=== PATIENT | female | born 1970 | race Two or more races ===

== ENCOUNTER 2023-05-02 03:40 | Emergency (ER) | payer BC, OTHER ==
[~2023-05-02] VITALS: Ht 175.3 cm; Wt 60.2 kg
[2023-05-02 03:51] VITALS: BP 100/73; PULSE 102; RESP 20; TEMP 98.5; O2SAT 96
[2023-05-02 04:43] LABS: Urine Bacteria FEW /hpf (None Seen); Urine Blood 1+ /uL (Negative); Urine Clarity Clear (Clear); Urine Color Colorless (Yellow); Urine Protein, UAD Negative (Negative); Urine Specific Gravity 1.001 (1.001-1.035); Urine Urobilinogen Normal (Negative); Urine WBC 6 /hpf (0 - 5); Urine pH 5.5 (5.0-8.0)
[2023-05-02] MEDS ORDERED: cefTRIAXone SOD 1,000 MG VL IM ONE (07:00)
[2023-05-02] MEDS ORDERED: PHENAZOPYRIDINE HCL 100 MG TAB PO ONE (07:00)
[2023-05-02] MEDS ORDERED: BACDST PO (07:07)
[2023-05-02] MEDS ORDERED: PHEN-922 PO (07:07)
== END 2023-05-02 07:26 | disposition home or self-care (01) ==
LOC: ER 03:40
DX: N39.0 Urinary tract infection, site not specified (principal)
CPT/HCPCS: 81001; 87086; 87088; 87186; 96372; 99283; J0696